=== PATIENT | female | born 2000 | race Caucasian/White ===

== ENCOUNTER → 2025-05-08 | Day surgery (SDC) | payer MEDICAID ==
[~2025-05-08] VITALS: Ht 132.1 cm; Wt 45.4 kg
[~2025-05-08] MED LIST: ATOR10TA69 PO; BISO5TAB13 PO; BUDE6HFA INH; BUPIVACAINE HCL/PF 0.5% (5MG/ML) 10ML ONE; DEXAMETHASONE 4MG/ML 1ML VIAL ONE; FAMO20TA8 PO; FENTANYL CITRATE/PF 50MCG/ML 2ML VIAL IV PRN; FENTANYL CITRATE/PF 50MCG/ML 2ML VIAL ONE; FERR325T6 PO; METOCLOPRAMIDE HCL 10MG/2ML VIAL ONE; MIDAZOLAM HCL 2 MG/2 ML VIAL ONE; ONDANSETRON HCL 4MG/2ML INJ IV PRN; ONDANSETRON HCL 4MG/2ML INJ ONE; POTA10CA93 PO; PROPOFOL 200MG/20ML VIAL IV ONE; ROCURONIUM BROMIDE 10MG/ML VIAL 5ML IV ONE; SODIUM CHLORIDE 0.9% 1,000 ML IV SCH
[2025-05-08 07:33] LABS: HCG SCREEN NEGATIVE
== END | disposition home or self-care (01) ==
LOC: OR 05:38
PROVIDERS: ATTEND Surgery
DX: L72.3 Sebaceous cyst (principal); C18.9 Malignant neoplasm of colon, unspecified; Z79.899 Other long term (current) drug therapy; Z98.890 Other specified postprocedural states
CPT/HCPCS: 11403; 11402; 82962; 84703; 88305; 93005; J3010; J0665; J1100; J2765; J2250; J2405; J2704; J3490